=== PATIENT | female | born 1965 | race Two or more races ===

== ENCOUNTER 2017-01-30 13:28 | Emergency (ER) | payer BC, OTHER ==
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
[2017-01-30] MEDS ORDERED: CYCLOBENZAPRINE HCL 10 MG TABLET PO ONE (14:01)
[2017-01-30 15:28] VITALS: BP 104/62
== END 2017-01-30 15:25 | disposition home or self-care (01) ==
LOC: ER 13:28
DX: M54.2 Cervicalgia (principal); M54.6 Pain in thoracic spine; M54.5 Low back pain; M25.512 Pain in left shoulder; M54.9 Dorsalgia, unspecified; V87.7XXA Person injured in collision between other specified motor vehicles (traffic), initial encounter
CPT/HCPCS: 72082; 99284